=== PATIENT | female | born 1965 | race Caucasian/White ===

== ENCOUNTER → 2023-06-05 11:34 | Outpatient (REF) | payer OTHER, SELFPAY | LOC: HWWDC 11:34 | PROVIDERS: ATTENDING PHYSICIAN Advanced Practice Midwife; FAMILY PHYSICIAN Family Medicine | DX: Z12.31 Encounter for screening mammogram for malignant neoplasm of breast (principal) | CPT/HCPCS: 77063; 77067 ==

== ENCOUNTER 2023-11-09 10:05 | Emergency (ER) | payer OTHER, SELFPAY ==
[2023-11-09] VITALS (7 sets, daily range): BP systolic 100–132; BP diastolic 64–91
[2023-11-09 10:53] LABS: % Eosinophils 4.7 % (0-6); % Immature Granulocytes 0.3 % (0-0.5); % Lymphocytes 37.2 % (20.5-51.1); % Monocytes 9.2 % (1.7-9.3); % Neutrophils 47.6 % (42.2-75.2); Absolute Basophils 0.1 10^3/uL (0-0.2); Absolute Eosinophils 0.3 10^3/uL (0-0.7); Absolute Lymphocytes 2.7 10^3/uL (1.2-3.4); Absolute Monocytes 0.7 10^3/uL (0.1-0.6); Absolute Neutrophils 3.5 10^3/uL (1.4-6.5); Hematocrit 38.5 % (37.0-47.0); Hemoglobin 13.6 g/dL (12.0-16.0); Mean Corp Hgb Conc. 35.3 g/dL (33.0-37.0); Mean Corpuscular Hgb 31.2 pg (27.0-31.0); Mean Corpuscular Volume 88.3 fL (81.0-99.0); Mean Platelet Volume 10.3 fL (7.4-10.4); Nucleated Red Blood Cells % 0 %; Platelet Count 269 10^3/uL (130-400); Red Blood Cell Count 4.36 10^6/uL (4.20-5.40); White Blood Cell Count 7.3 10^3/uL (4.8-10.8)
[2023-11-09 10:59] LABS: ALT (SGPT) 41 U/L (0-35); AST (SGOT) 43 U/L (14-36); Albumin 4.5 g/dl (3.5-5.0); Alkaline Phosphatase 65 U/L (38-126); Blood Urea Nitrogen 12 mg/dl (7-17); Calcium 9.8 mg/dl (8.4-10.2); Carbon Dioxide 26 mmol/L (22-30); Chloride 107 mmol/L (98-107); Glucose 107 mg/dl (70-99); Magnesium 2.1 mg/dl (1.6-2.3); Potassium 4.3 mmol/L (3.5-5.1); Sodium 140 mmol/L (135-145); Total Bilirubin 0.6 mg/dl (0.2-1.3); Total Protein 7.2 g/dl (6.3-8.2); eGFR > 60.00
[2023-11-09 11:15] LABS: NT-proBNP 50.5 pg/ml; Troponin I 0.035 ng/ml
--- NOTE | 2023-11-09 12:36 | ED.GENMED ---
History of Present Illness
General
Chief Complaint: Chest Pain
Source: patient and family
Exam Limitations: none
Time Seen by Provider: 11/09/23 10:23
Nursing documentation reviewed up to this point in time: agreed with
History of Present Illness
History of Present Illness:
57-year-old female past medical history of CAD status post 2 stents 2 years ago, hypertension hyperlipidemia presenting to the emergency department with chest pain starting 4 hours prior to arrival to the emergency department described as a sharp
pain to the left lower chest rating to her back between her shoulder blades. Worse with deep breaths. Also felt some cramping in her legs and also felt some lightheadedness and tingling to her head. Denies any shortness of breath nausea or
vomiting.
Past History
Past History
ED Past Medical History: None; Negative Asthma, HTN, Hypercholesterolemia or NIDDM
ED Past Surgical History: (X 1)
Social History
Tobacco: Non-smoker
Alcohol: None
Drug: None
Personal:
Living: with family
Review of Systems
Review of Systems
Allergies reviewed?: Yes
All Other Systems: ROS reviewed and negative except as documented in HPI and ROS
Phy Exam
Physical Exam
Physical Exam:
GENERAL: Alert , in no apparent distress
EYE: pupils equal and reactive
NECK: Supple, no significant adenopathy.
ENT: o/p clr, mmm.
CARDIAC: Regular rate and rhythm .
LUNGS: Clear breath sounds bilaterally, no acute respiratory distress, no wheezes/rales/rhonchi
ABDOMEN: Soft, without focal tenderness, no r/g, no cvat
NEUROLOGICAL: Alert and oriented, no focal neuro deficits
SKIN: Warm and dry, skin intact.
MUSCULOSKELETAL: No edema, well perfused.
PSYCH: Normal and appropriate interaction.
Scores
Heart Score for Chest Pain Patients
STEMI patient?: No
History: Slightly or Non-Suspicious
ECG: Normal
Age: >45 - <65 years
Risk Factors: >/= 3 Risk Factors or History of CAD
Troponin: </= Normal Limit
Heart Score for Chest Pain Patients: 3
Heart Score Risk: 2.5% MACE over next 6 weeks
Course
Orders/Labs/Results
Orders:
Orders
11/09/23 10:07
EKG [Electrocardiogram (*1)] Urgent
Reason for Study: Chest Pain
11/09/23 10:08
EKG- Treatment ONCE
11/09/23 10:31
CT Chest/abd/pelvis Angio W/wo Urgent
Comment:
Reason For Exam: sharp CP radiation to back with tingling head/feet
11/09/23 10:36
Complete Blood Count/With Diff Urgent
Comprehensive Metabolic Panel Urgent
Magnesium Urgent
NT-proBNP Urgent
Troponin I Urgent
11/09/23 14:02
Electrocardiogram (*1) Urgent
Reason for Study: Chest Pain
Other Reason for Exam: repeat
EKG- Treatment ONCE
11/09/23 14:03
Aspirin 325 mg PO NOW STA
11/09/23 14:26
Troponin I Urgent
Abnormal Lab Results
11/09/23
10:36
MCH 31.2 H pg
(27.0-31.0)
Absolute Monos (auto) 0.7 H 10^3/uL
(0.1-0.6)
Glucose 107 H mg/dl
(70-99)
AST 43 H U/L
(14-36)
ALT 41 H U/L
(0-35)
Troponin I 0.035 H* ng/ml
11/09/23 10:36
11/09/23 10:36
Vital Signs
Initial and Last Documented VS:
Initial Vital Signs
Temp Pulse Resp BP Pulse Ox
98 F 60 18 132/80 98
11/09/23 10:13 11/09/23 10:13 11/09/23 10:13 11/09/23 10:13 11/09/23 10:13
Last Documented Vital Signs
Temp Pulse Resp BP Pulse Ox
98 F 54 12 123/83 92
11/09/23 10:13 11/09/23 12:00 11/09/23 12:00 11/09/23 12:00 11/09/23 12:00
MDM/Problems Addressed
MDM/Problems Addressed:
57-year-old female presenting to the emergency department today with concerns of a left lower chest discomfort described as sharp rating to the back. On arrival vital signs are normal patient no distress with descriptions of radiating pain to the
back as well as tingling elsewhere plan for scan of the aorta for further assessment. CT scan without emergent findings no evidence of PE or aortic pathology. Troponin very marginally elevated 0.035 she has not had a troponin level multiple years.
3 and half hours into stay patient had repeated troponin level that improved to 0.033. EKG unchanged throughout ER stay no evidence of ischemia. Chest pain sounds to be very atypical for cardiac etiology. Case was discussed with cardiology who
agrees that feels that outpatient follow-up would be reasonable. Return precautions given.
*Critical Care Note
Total Time (30-74mins, 75-104mins- exclusive of procedures): Not Applicable
ED Attending Note
-
Portions of this chart may have been created with voice recognition software.� Occasional wrong word or��sound alike� substitutions may have occurred due to the inherent limitations of voice recognition software.
Discharge Plan
Departure
Patient Disposition: Home (Routine Discharge)
Date of Disposition: 11/09/23
Time of Disposition: 15:20
Patient with high blood pressure during this ER visit?: No
Condition: Good
Covid-19: Not Applicable
Discharge Problem:
Chest pain
Instructions: Chest Pain DCA Follow Up
Prescriptions:
No Action
amlodipine [Norvasc] 5 mg tablet
5 mg PO DAILY Qty: 30 0RF
aspirin [aspirin] 81 mg tablet,chewable
81 mg PO DAILY Qty: 1 0RF
atorvastatin 20 mg Tablet
20 mg PO HS
metoprolol succinate 50 mg Tablet Extended Release 24 Hr
50 mg PO HS
levothyroxine 25 mcg Tablet
25 mcg PO DAILY
[place] Nasal Mist 0.65 % Aerosol,[place]
1 spray INTRANASAL DAILY
Referrals:
Mike Pires DO [Family Provider] -
Activity Restrictions/Additional Instructions:
You came to the emergency department today for concerns of chest pain. Here your assessment was reassuring. Please follow-up closely with cardiology. Immediately return to the emergency department for any worsening, new or concerning symptoms.
Interventions
Interventions:
*Risk Screen - Suicide Last Done: 11/09/23 10:13
*General Assessment Last Done: 11/09/23 10:13
*Neglect/Abuse Screening Last Done: 11/09/23 10:13
ED- Fall Risk Assessment Last Done: 11/09/23 10:42
ED- Cardiac Assessment Last Done: 11/09/23 10:42
Discharge Date and Time
Print Language: [id number]
[2023-11-09] MEDS: ASPIRIN 325 MG PO (14:54)
[2023-11-09 15:00] LABS: Troponin I 0.033 ng/ml
== END 2023-11-09 15:58 | disposition home or self-care (01) ==
LOC: EMR 10:05
PROVIDERS: Physician Assistant; EMERGENCY PHYSICIAN Student in an Organized Health Care Education/Training Program; FAMILY PHYSICIAN Family Medicine
DX: R07.89 Other chest pain (principal); I25.10 Atherosclerotic heart disease of native coronary artery without angina pectoris; I10 Essential (primary) hypertension; E78.00 Pure hypercholesterolemia, unspecified; Z95.5 Presence of coronary angioplasty implant and graft
CPT/HCPCS: 99284; 71275; 74174; 80053; 83735; 83880; 84484; 85025; 93005; Q9967

== ENCOUNTER → 2023-11-30 07:55 | Outpatient (REF) | payer OTHER, SELFPAY | LOC: DHCBC/DCA 07:55 | PROVIDERS: ATTENDING PHYSICIAN Internal Medicine Interventional Cardiology; FAMILY PHYSICIAN Family Medicine | DX: I10 Essential (primary) hypertension (principal); R07.9 Chest pain, unspecified; I25.10 Atherosclerotic heart disease of native coronary artery without angina pectoris | CPT/HCPCS: 78452; 93017; A9500 ==

== ENCOUNTER → 2023-12-01 13:53 | Outpatient (REF) | payer OTHER, SELFPAY | LOC: RCS 13:53 | PROVIDERS: ATTENDING PHYSICIAN Internal Medicine Interventional Cardiology; FAMILY PHYSICIAN Family Medicine | DX: R07.9 Chest pain, unspecified (principal) | CPT/HCPCS: 93306 ==